=== PATIENT | female | born 1975 | race Caucasian/White ===

== ENCOUNTER 2017-03-28 12:26 | Outpatient (CLI) | payer BC ==
--- NOTE | 2017-03-28 14:26 | DIAGNOSTIC IMAGING REPORT ---
PROCEDURE: MR BRAIN W/WO CONTRAST INDICATION: COITAL HEADACHE TECHNIQUE: Multiplanar multisequence MRI imaging of the brain without contrast. Post administration of 10 ml ProHance gadolinium based IV contrast, three plane T1 fat sat sequences were obtained. COMPARISON: None. FINDINGS: The midline structures are normally formed. The ventricular system is normal in size. Basal cisterns are patent. Flow voids in the major intracranial vessels are normal. No vascular malformations seen post contrast. Scattered areas of enhancement are seen in the periventricular, subcortical white matter. Normal signal in the visible bones. The sinuses are normally aerated. Visible extracranial soft tissues including the orbits are normal. IMPRESSION: 1. Scattered areas of enhancement in the white matter suggestive of a demyelinating process such as multiple sclerosis.
== END 2017-03-28 23:00 ==
LOC: MRI SRH 12:26
DX: G44.82 Headache associated with sexual activity (principal)